=== PATIENT | male | born 1990 | race African-American/Black ===

== ENCOUNTER 2022-06-27 15:07 | Inpatient (IN) | payer OTHER ==
[~2022-06-27] VITALS: Ht 177.8 cm; Wt 97.6 kg
[2022-06-27 16:15] VITALS: BP 148/96
[2022-06-27] MEDS ORDERED: ONDANSETRON HCL 4 MG TABLET PO PRN (16:30)
[2022-06-27 20:16] VITALS: BP 156/68
[2022-06-27] MEDS: OxyCODONE HCL 5 MG IR TABLET PO PRN (20:16)
[2022-06-27] MEDS: ENOXAPARIN SODIUM 40 MG/0.4 ML PF SYRINGE SQ SCH (20:16)
[2022-06-27] MEDS: PREGABALIN 75 MG CAPSULE PO SCH (20:17)
[2022-06-27] MEDS: AMITRIPTYLINE HCL 25 MG TABLET PO SCH (20:19)
[2022-06-27] MEDS: SENNOSIDES 8.6 MG TABLET PO SCH (20:20)
[2022-06-27] MEDS: ETHYL ALCOHOL 62% ANTISEPTIC NASAL SANITIZER 0.6 ML AMPUL NASAL SCH (20:21)
[2022-06-27] MEDS ORDERED: LIDOCAINE 5% TRANSDERMAL PATCH TD SCH (20:30)
[2022-06-27] MEDS ORDERED: CELECOXIB 200 MG CAPSULE PO SCH (21:00)
[2022-06-27] MEDS ORDERED: -LIDODERM PATCH NOTE- MISC SCH (21:00)
[2022-06-27] MEDS: LIDOCAINE 5% TRANSDERMAL PATCH TD SCH ×2 (21:04→21:27)
[2022-06-28 08:00] VITALS: BP 153/88
[2022-06-28] MEDS: CELECOXIB 200 MG CAPSULE PO SCH ×2 (08:17→16:42)
[2022-06-28] MEDS: PREGABALIN 75 MG CAPSULE PO SCH ×3 (08:19→20:52)
[2022-06-28] MEDS: ETHYL ALCOHOL 62% ANTISEPTIC NASAL SANITIZER 0.6 ML AMPUL NASAL SCH ×2 (08:19→20:51)
[2022-06-28] MEDS: BuPROPion HCL XL 150 MG ER TABLET PO SCH (08:20)
[2022-06-28] MEDS: POLYETHYLENE GLYCOL 3350 17 GM PACKET PO SCH (08:20)
[2022-06-28] MEDS: ACETAMINOPHEN 325 MG TABLET PO PRN (08:20)
[2022-06-28] MEDS: ENOXAPARIN SODIUM 40 MG/0.4 ML PF SYRINGE SQ SCH ×2 (08:20→20:52)
[2022-06-28] MEDS: -LIDODERM PATCH NOTE- MISC SCH ×2 (08:37)
[2022-06-28 08:44] LABS: BASOPHILS % (AUTO) 0.7 % (0.0-2.0); EOSINOPHILS % (AUTO) 3.9 % (1.0-6.0); HEMATOCRIT 35.4 % (41-53); HEMOGLOBIN 11.3 g/dL (13.5-17.5); LYMPHOCYTES # (AUTO) 1.5 K/uL (1.0-4.8); LYMPHOCYTES % (AUTO) 30.7 % (22.0-44.0); MEAN CORPUSCULAR HEMOGLOBIN 27.5 pg (26.0-34.0); MEAN CORPUSCULAR HGB CONC 31.8 G/dL (31.0-37.0); MEAN CORPUSCULAR VOLUME 87 fL (80-100); MONOCYTES # (AUTO) 0.5 K/uL (0.1-1.0); MONOCYTES % (AUTO) 11.4 % (2.0-9.0); NEUTROPHILS # (AUTO) 2.5 K/uL (1.8-7.7); NEUTROPHILS % (AUTO) 53.3 % (40.0-70.0); PLATELET COUNT (AUTO) 429 K/uL (150-450); RED CELL DISTRIBUTION WIDTH 15.3 % (11.5-14.5)
[2022-06-28 09:00] LABS: ALANINE AMINOTRANSFERASE 38 U/L (12-78); ALBUMIN 3.5 g/dL (3.4-5.0); ALKALINE PHOSPHATASE 148 U/L (46-116); ANION GAP 11 mmol/L (8-16); ASPARTATE AMINOTRANSFERASE 21 U/L (15-37); BILIRUBIN,TOTAL 0.8 mg/dL (0.1-1.0); CALCIUM, TOTAL 9.5 mg/dL (8.8-10.5); CARBON DIOXIDE 25 mmol/L (22-29); CHLORIDE 98 mmol/L (98-107); CREATININE 0.81 mg/dL (0.60-1.30); GLOMERULAR FILTR. RATE CALC > 60 mL/min (>60); GLUCOSE,RANDOM 157 mg/dL (70-110); POTASSIUM 3.8 mmol/L (3.5-5.1); SODIUM SERUM 134 mmol/L (136-145); TOTAL PROTEIN, SERUM 7.9 g/dL (6.4-8.2)
[2022-06-28] MEDS ORDERED: -LIDODERM PATCH NOTE- MISC SCH (09:00)
[2022-06-28] MEDS ORDERED: LIDOCAINE 5% TRANSDERMAL PATCH TD SCH (09:00)
[2022-06-28] MEDS: OxyCODONE HCL 5 MG IR TABLET PO PRN (11:03)
[2022-06-28] MEDS: AMITRIPTYLINE HCL 25 MG TABLET PO SCH (20:51)
[2022-06-28] MEDS: MELATONIN 3 MG TABLET PO PRN (20:54)
[2022-06-28 21:00] VITALS: BP 135/84
[2022-06-28] MEDS: SENNOSIDES 8.6 MG TABLET PO SCH (21:00)
[2022-06-28] MEDS: LIDOCAINE 5% TRANSDERMAL PATCH TD SCH ×2 (21:03→21:05)
[2022-06-29] MEDS: OxyCODONE HCL 5 MG IR TABLET PO PRN (06:11)
[2022-06-29 08:40] VITALS: BP 152/88
[2022-06-29] MEDS: PREGABALIN 75 MG CAPSULE PO SCH ×3 (08:46→20:49)
[2022-06-29] MEDS: BuPROPion HCL XL 150 MG ER TABLET PO SCH (08:46)
[2022-06-29] MEDS: ENOXAPARIN SODIUM 40 MG/0.4 ML PF SYRINGE SQ SCH ×2 (08:46→20:50)
[2022-06-29] MEDS: CELECOXIB 200 MG CAPSULE PO SCH ×2 (08:47→17:06)
[2022-06-29] MEDS: -LIDODERM PATCH NOTE- MISC SCH ×2 (08:50→08:51)
[2022-06-29] MEDS: ETHYL ALCOHOL 62% ANTISEPTIC NASAL SANITIZER 0.6 ML AMPUL NASAL SCH ×2 (08:50→20:49)
[2022-06-29] MEDS: POLYETHYLENE GLYCOL 3350 17 GM PACKET PO SCH (08:51)
[2022-06-29] MEDS: AMITRIPTYLINE HCL 25 MG TABLET PO SCH (20:49)
[2022-06-29] MEDS: SENNOSIDES 8.6 MG TABLET PO SCH (20:50)
[2022-06-29] MEDS: LIDOCAINE 5% TRANSDERMAL PATCH TD SCH ×2 (20:51→20:53)
[2022-06-29] MEDS: MELATONIN 3 MG TABLET PO PRN (20:54)
[2022-06-29 21:00] VITALS: BP 138/79
[2022-06-30] MEDS: OxyCODONE HCL 5 MG IR TABLET PO PRN (05:23)
[2022-06-30] MEDS: CYCLOBENZAPRINE HCL 10 MG TABLET PO PRN ×2 (06:32→20:50)
[2022-06-30] MEDS: CELECOXIB 200 MG CAPSULE PO SCH ×2 (08:08→18:06)
[2022-06-30] MEDS: -LIDODERM PATCH NOTE- MISC SCH ×2 (08:08)
[2022-06-30] MEDS: BuPROPion HCL XL 150 MG ER TABLET PO SCH (08:09)
[2022-06-30] MEDS: ETHYL ALCOHOL 62% ANTISEPTIC NASAL SANITIZER 0.6 ML AMPUL NASAL SCH ×2 (08:09→20:48)
[2022-06-30] MEDS: PREGABALIN 75 MG CAPSULE PO SCH ×3 (08:09→20:47)
[2022-06-30] MEDS: POLYETHYLENE GLYCOL 3350 17 GM PACKET PO SCH (08:09)
[2022-06-30] MEDS: ENOXAPARIN SODIUM 40 MG/0.4 ML PF SYRINGE SQ SCH ×2 (08:09→20:48)
[2022-06-30 08:10] VITALS: BP 154/90
[2022-06-30] MEDS: ACETAMINOPHEN 325 MG TABLET PO PRN ×3 (08:16→20:49)
[2022-06-30 11:19] VITALS: BP 144/95
[2022-06-30 20:15] VITALS: BP 151/96
[2022-06-30] MEDS: AMITRIPTYLINE HCL 25 MG TABLET PO SCH (20:50)
[2022-06-30] MEDS: SENNOSIDES 8.6 MG TABLET PO SCH (20:51)
[2022-06-30] MEDS: MELATONIN 3 MG TABLET PO PRN (20:51)
[2022-06-30] MEDS: LIDOCAINE 5% TRANSDERMAL PATCH TD SCH ×2 (21:00)
[2022-07-01] MEDS: OxyCODONE HCL 5 MG IR TABLET PO PRN ×3 (05:39→20:36)
[2022-07-01] MEDS: ETHYL ALCOHOL 62% ANTISEPTIC NASAL SANITIZER 0.6 ML AMPUL NASAL SCH ×2 (08:13→20:39)
[2022-07-01] MEDS: ENOXAPARIN SODIUM 40 MG/0.4 ML PF SYRINGE SQ SCH ×2 (08:13→20:36)
[2022-07-01] MEDS: PREGABALIN 75 MG CAPSULE PO SCH ×3 (08:14→20:36)
[2022-07-01] MEDS: CELECOXIB 200 MG CAPSULE PO SCH ×2 (08:14→17:28)
[2022-07-01] MEDS: BuPROPion HCL XL 150 MG ER TABLET PO SCH (08:15)
[2022-07-01] MEDS: POLYETHYLENE GLYCOL 3350 17 GM PACKET PO SCH (08:22)
[2022-07-01 08:47] VITALS: BP 152/95
[2022-07-01] MEDS: -LIDODERM PATCH NOTE- MISC SCH ×2 (09:00)
[2022-07-01] MEDS: METOPROLOL SUCCINATE 25 MG ER TABLET PO SCH ×2 (16:30→18:07)
[2022-07-01] MEDS: CYCLOBENZAPRINE HCL 10 MG TABLET PO PRN (19:49)
[2022-07-01 19:50] VITALS: BP 133/88
[2022-07-01] MEDS: LIDOCAINE 5% TRANSDERMAL PATCH TD SCH ×2 (19:54→20:37)
[2022-07-01] MEDS: SENNOSIDES 8.6 MG TABLET PO SCH (20:36)
[2022-07-01] MEDS: AMITRIPTYLINE HCL 25 MG TABLET PO SCH (20:36)
[2022-07-02] MEDS: OxyCODONE HCL 5 MG IR TABLET PO PRN (04:16)
[2022-07-02] MEDS: CYCLOBENZAPRINE HCL 10 MG TABLET PO PRN ×2 (06:27→22:24)
[2022-07-02] MEDS: CELECOXIB 200 MG CAPSULE PO SCH ×2 (07:51→16:18)
[2022-07-02] MEDS: ENOXAPARIN SODIUM 40 MG/0.4 ML PF SYRINGE SQ SCH ×2 (07:51→20:56)
[2022-07-02] MEDS: ETHYL ALCOHOL 62% ANTISEPTIC NASAL SANITIZER 0.6 ML AMPUL NASAL SCH ×2 (07:51→20:55)
[2022-07-02] MEDS: BuPROPion HCL XL 150 MG ER TABLET PO SCH (07:52)
[2022-07-02] MEDS: POLYETHYLENE GLYCOL 3350 17 GM PACKET PO SCH (07:52)
[2022-07-02] MEDS: PREGABALIN 75 MG CAPSULE PO SCH ×3 (07:52→20:56)
[2022-07-02] MEDS: METOPROLOL SUCCINATE 25 MG ER TABLET PO SCH (07:52)
[2022-07-02 08:05] VITALS: BP 139/86
[2022-07-02] MEDS: -LIDODERM PATCH NOTE- MISC SCH ×2 (09:00)
[2022-07-02 20:20] VITALS: BP 138/94
[2022-07-02] MEDS: SENNOSIDES 8.6 MG TABLET PO SCH ×2 (20:56→21:00)
[2022-07-02] MEDS: LIDOCAINE 5% TRANSDERMAL PATCH TD SCH ×2 (20:56→21:00)
[2022-07-02] MEDS: AMITRIPTYLINE HCL 25 MG TABLET PO SCH (20:56)
[2022-07-02] MEDS: ZOLPIDEM TARTRATE 5 MG TABLET PO PRN (22:22)
[2022-07-03] MEDS: ETHYL ALCOHOL 62% ANTISEPTIC NASAL SANITIZER 0.6 ML AMPUL NASAL SCH ×2 (07:51→20:34)
[2022-07-03] MEDS: -LIDODERM PATCH NOTE- MISC SCH ×2 (07:51)
[2022-07-03] MEDS: CELECOXIB 200 MG CAPSULE PO SCH ×2 (07:51→16:51)
[2022-07-03] MEDS: METOPROLOL SUCCINATE 25 MG ER TABLET PO SCH (07:52)
[2022-07-03] MEDS: POLYETHYLENE GLYCOL 3350 17 GM PACKET PO SCH (07:52)
[2022-07-03] MEDS: BuPROPion HCL XL 150 MG ER TABLET PO SCH (07:52)
[2022-07-03] MEDS: PREGABALIN 75 MG CAPSULE PO SCH ×3 (07:52→20:36)
[2022-07-03] MEDS: ENOXAPARIN SODIUM 40 MG/0.4 ML PF SYRINGE SQ SCH ×2 (07:52→20:34)
[2022-07-03 08:00] VITALS: BP 142/84
[2022-07-03 20:20] VITALS: BP 136/78
[2022-07-03] MEDS: CYCLOBENZAPRINE HCL 10 MG TABLET PO PRN (20:34)
[2022-07-03] MEDS: LIDOCAINE 5% TRANSDERMAL PATCH TD SCH ×2 (20:35)
[2022-07-03] MEDS: ZOLPIDEM TARTRATE 5 MG TABLET PO PRN (20:36)
[2022-07-03] MEDS: AMITRIPTYLINE HCL 25 MG TABLET PO SCH (20:36)
[2022-07-03] MEDS: SENNOSIDES 8.6 MG TABLET PO SCH (20:37)
[2022-07-04] MEDS: ENOXAPARIN SODIUM 40 MG/0.4 ML PF SYRINGE SQ SCH ×2 (07:52→21:53)
[2022-07-04] MEDS: METOPROLOL SUCCINATE 25 MG ER TABLET PO SCH (07:53)
[2022-07-04] MEDS: PREGABALIN 75 MG CAPSULE PO SCH ×3 (07:53→21:55)
[2022-07-04] MEDS: CELECOXIB 200 MG CAPSULE PO SCH ×2 (07:54→18:16)
[2022-07-04] MEDS: POLYETHYLENE GLYCOL 3350 17 GM PACKET PO SCH (07:54)
[2022-07-04] MEDS: BuPROPion HCL XL 150 MG ER TABLET PO SCH (07:54)
[2022-07-04 07:56] LABS: CARBON DIOXIDE 27 mmol/L (22-29); CHLORIDE 99 mmol/L (98-107); POTASSIUM 4.6 mmol/L (3.5-5.1); SODIUM SERUM 138 mmol/L (136-145)
[2022-07-04 07:57] LABS: ANION GAP 12 mmol/L (8-16); CALCIUM, TOTAL 9.9 mg/dL (8.8-10.5); CREATININE 0.67 mg/dL (0.60-1.30); GLOMERULAR FILTR. RATE CALC > 60 mL/min (>60); GLUCOSE,RANDOM 117 mg/dL (70-110)
[2022-07-04 08:20] VITALS: BP 137/89
[2022-07-04] MEDS: -LIDODERM PATCH NOTE- MISC SCH ×2 (09:00)
[2022-07-04] MEDS: ETHYL ALCOHOL 62% ANTISEPTIC NASAL SANITIZER 0.6 ML AMPUL NASAL SCH ×2 (09:00→21:53)
[2022-07-04] MEDS: ACETAMINOPHEN 325 MG TABLET PO PRN (10:46)
[2022-07-04] MEDS: OxyCODONE HCL 5 MG IR TABLET PO PRN (15:00)
[2022-07-04 21:00] VITALS: BP 148/89
[2022-07-04] MEDS: LIDOCAINE 5% TRANSDERMAL PATCH TD SCH ×2 (21:00)
[2022-07-04] MEDS: SENNOSIDES 8.6 MG TABLET PO SCH (21:00)
[2022-07-04] MEDS: AMITRIPTYLINE HCL 25 MG TABLET PO SCH (21:55)
[2022-07-04] MEDS: ZOLPIDEM TARTRATE 5 MG TABLET PO PRN (23:00)
[2022-07-04] MEDS: CYCLOBENZAPRINE HCL 10 MG TABLET PO PRN (23:00)
[2022-07-05 08:17] LABS: EOSINOPHILS % (AUTO) 1.7 % (1.0-6.0); HEMATOCRIT 37.7 % (41-53); LYMPHOCYTES # (AUTO) 1.7 K/uL (1.0-4.8); LYMPHOCYTES % (AUTO) 33.2 % (22.0-44.0); MEAN CORPUSCULAR HEMOGLOBIN 27.4 pg (26.0-34.0); MEAN CORPUSCULAR HGB CONC 31.9 G/dL (31.0-37.0); MEAN CORPUSCULAR VOLUME 86 fL (80-100); MONOCYTES # (AUTO) 0.7 K/uL (0.1-1.0); MONOCYTES % (AUTO) 13.5 % (2.0-9.0); NEUTROPHILS # (AUTO) 2.6 K/uL (1.8-7.7); NEUTROPHILS % (AUTO) 50.6 % (40.0-70.0); PLATELET COUNT (AUTO) 363 K/uL (150-450); RED BLOOD CELL COUNT(AUTO) 4.39 MIL/uL (4.50-5.90); RED CELL DISTRIBUTION WIDTH 14.5 % (11.5-14.5)
[2022-07-05 08:30] VITALS: BP 132/80
[2022-07-05 08:43] LABS: THYROID STIMULATING HORMONE 2.76 uIU/mL (0.36-3.74)
[2022-07-05] MEDS: POLYETHYLENE GLYCOL 3350 17 GM PACKET PO SCH (09:00)
[2022-07-05] MEDS: -LIDODERM PATCH NOTE- MISC SCH ×2 (09:00)
[2022-07-05 09:08] LABS: HEMOGLOBIN A1C 4.7 % (3.8-5.6)
[2022-07-05] MEDS: ENOXAPARIN SODIUM 40 MG/0.4 ML PF SYRINGE SQ SCH ×2 (09:18→20:16)
[2022-07-05] MEDS: ETHYL ALCOHOL 62% ANTISEPTIC NASAL SANITIZER 0.6 ML AMPUL NASAL SCH ×2 (09:18→20:14)
[2022-07-05] MEDS: METOPROLOL SUCCINATE 25 MG ER TABLET PO SCH (09:19)
[2022-07-05] MEDS: BuPROPion HCL XL 150 MG ER TABLET PO SCH (09:19)
[2022-07-05] MEDS: CELECOXIB 200 MG CAPSULE PO SCH ×2 (09:19→17:17)
[2022-07-05] MEDS: ACETAMINOPHEN 325 MG TABLET PO PRN (09:29)
[2022-07-05] MEDS: PREGABALIN 50 MG CAPSULE PO SCH ×3 (10:05→20:15)
[2022-07-05] MEDS: OxyCODONE HCL 5 MG IR TABLET PO PRN (18:22)
[2022-07-05 19:53] VITALS: BP 139/80
[2022-07-05] MEDS: ZOLPIDEM TARTRATE 5 MG TABLET PO PRN (20:15)
[2022-07-05] MEDS: CYCLOBENZAPRINE HCL 10 MG TABLET PO PRN (20:15)
[2022-07-05] MEDS: SENNOSIDES 8.6 MG TABLET PO SCH (20:16)
[2022-07-05] MEDS: LIDOCAINE 5% TRANSDERMAL PATCH TD SCH ×2 (21:30→21:31)
[2022-07-05] MEDS: AMITRIPTYLINE HCL 25 MG TABLET PO SCH (21:31)
[2022-07-06] MEDS: OxyCODONE HCL 5 MG IR TABLET PO PRN ×2 (01:46→12:07)
[2022-07-06] MEDS: CELECOXIB 200 MG CAPSULE PO SCH ×2 (08:05→17:52)
[2022-07-06] MEDS: PREGABALIN 50 MG CAPSULE PO SCH ×3 (08:05→21:28)
[2022-07-06] MEDS: ENOXAPARIN SODIUM 40 MG/0.4 ML PF SYRINGE SQ SCH ×2 (08:06→21:29)
[2022-07-06] MEDS: METOPROLOL SUCCINATE 50 MG ER TABLET PO SCH (08:06)
[2022-07-06] MEDS: BuPROPion HCL XL 150 MG ER TABLET PO SCH (08:06)
[2022-07-06] MEDS: ETHYL ALCOHOL 62% ANTISEPTIC NASAL SANITIZER 0.6 ML AMPUL NASAL SCH ×2 (08:07→21:28)
[2022-07-06] MEDS: ACETAMINOPHEN 325 MG TABLET PO PRN ×2 (08:12→18:54)
[2022-07-06] MEDS: CYCLOBENZAPRINE HCL 10 MG TABLET PO PRN ×2 (08:17→21:28)
[2022-07-06 08:30] VITALS: BP 149/99
[2022-07-06] MEDS: -LIDODERM PATCH NOTE- MISC SCH ×2 (09:00)
[2022-07-06] MEDS: POLYETHYLENE GLYCOL 3350 17 GM PACKET PO SCH (09:00)
[2022-07-06 21:28] VITALS: BP 124/77
[2022-07-06] MEDS: ZOLPIDEM TARTRATE 5 MG TABLET PO PRN (21:28)
[2022-07-06] MEDS: SENNOSIDES 8.6 MG TABLET PO SCH (21:28)
[2022-07-06] MEDS: AMITRIPTYLINE HCL 25 MG TABLET PO SCH (21:28)
[2022-07-06] MEDS: LIDOCAINE 5% TRANSDERMAL PATCH TD SCH ×2 (21:30)
[2022-07-07] MEDS: ACETAMINOPHEN 325 MG TABLET PO PRN (07:40)
[2022-07-07] MEDS: BuPROPion HCL XL 150 MG ER TABLET PO SCH (07:40)
[2022-07-07] MEDS: CELECOXIB 200 MG CAPSULE PO SCH ×2 (07:40→16:18)
[2022-07-07] MEDS: ENOXAPARIN SODIUM 40 MG/0.4 ML PF SYRINGE SQ SCH ×2 (07:40→19:59)
[2022-07-07] MEDS: METOPROLOL SUCCINATE 50 MG ER TABLET PO SCH (07:40)
[2022-07-07] MEDS: PREGABALIN 50 MG CAPSULE PO SCH ×3 (07:40→20:00)
[2022-07-07] MEDS: ETHYL ALCOHOL 62% ANTISEPTIC NASAL SANITIZER 0.6 ML AMPUL NASAL SCH ×2 (07:47→19:59)
[2022-07-07] MEDS: -LIDODERM PATCH NOTE- MISC SCH ×2 (07:51)
[2022-07-07] MEDS: POLYETHYLENE GLYCOL 3350 17 GM PACKET PO SCH (07:52)
[2022-07-07 08:20] VITALS: BP 149/88
[2022-07-07] MEDS: CYCLOBENZAPRINE HCL 10 MG TABLET PO PRN (19:59)
[2022-07-07 20:00] VITALS: BP 137/78
[2022-07-07] MEDS: SENNOSIDES 8.6 MG TABLET PO SCH (20:00)
[2022-07-07] MEDS: AMITRIPTYLINE HCL 50 MG TABLET PO SCH (20:00)
[2022-07-07] MEDS: ZOLPIDEM TARTRATE 5 MG TABLET PO PRN (20:00)
[2022-07-07] MEDS: LIDOCAINE 5% TRANSDERMAL PATCH TD SCH ×2 (20:01)
[2022-07-08] MEDS: OxyCODONE HCL 5 MG IR TABLET PO PRN ×2 (00:59→23:38)
[2022-07-08] MEDS: -LIDODERM PATCH NOTE- MISC SCH ×2 (07:59)
[2022-07-08] MEDS: POLYETHYLENE GLYCOL 3350 17 GM PACKET PO SCH (07:59)
[2022-07-08] MEDS: ETHYL ALCOHOL 62% ANTISEPTIC NASAL SANITIZER 0.6 ML AMPUL NASAL SCH ×2 (07:59→21:26)
[2022-07-08] MEDS: CELECOXIB 200 MG CAPSULE PO SCH ×2 (07:59→16:40)
[2022-07-08] MEDS: PREGABALIN 50 MG CAPSULE PO SCH ×3 (07:59→21:26)
[2022-07-08 08:00] VITALS: BP 147/90
[2022-07-08] MEDS: ACETAMINOPHEN 325 MG TABLET PO PRN (08:00)
[2022-07-08] MEDS: BuPROPion HCL XL 150 MG ER TABLET PO SCH (08:00)
[2022-07-08] MEDS: ENOXAPARIN SODIUM 40 MG/0.4 ML PF SYRINGE SQ SCH ×2 (08:00→21:27)
[2022-07-08] MEDS: METOPROLOL SUCCINATE 50 MG ER TABLET PO SCH (08:00)
[2022-07-08 21:00] VITALS: BP 141/76
[2022-07-08] MEDS: AMITRIPTYLINE HCL 50 MG TABLET PO SCH (21:26)
[2022-07-08] MEDS: SENNOSIDES 8.6 MG TABLET PO SCH (21:27)
[2022-07-08] MEDS: LIDOCAINE 5% TRANSDERMAL PATCH TD SCH ×2 (21:28→21:30)
[2022-07-08] MEDS: CYCLOBENZAPRINE HCL 10 MG TABLET PO PRN (21:38)
[2022-07-08] MEDS: ZOLPIDEM TARTRATE 5 MG TABLET PO PRN (22:22)
[2022-07-09 08:05] VITALS: BP 154/95
[2022-07-09] MEDS: PREGABALIN 50 MG CAPSULE PO SCH ×3 (08:19→21:42)
[2022-07-09] MEDS: -LIDODERM PATCH NOTE- MISC SCH ×2 (08:19)
[2022-07-09] MEDS: ETHYL ALCOHOL 62% ANTISEPTIC NASAL SANITIZER 0.6 ML AMPUL NASAL SCH ×2 (08:19→21:41)
[2022-07-09] MEDS: METOPROLOL SUCCINATE 50 MG ER TABLET PO SCH (08:19)
[2022-07-09] MEDS: POLYETHYLENE GLYCOL 3350 17 GM PACKET PO SCH (08:19)
[2022-07-09] MEDS: CELECOXIB 200 MG CAPSULE PO SCH ×2 (08:19→16:48)
[2022-07-09] MEDS: ACETAMINOPHEN 325 MG TABLET PO PRN (08:20)
[2022-07-09] MEDS: ENOXAPARIN SODIUM 40 MG/0.4 ML PF SYRINGE SQ SCH ×2 (08:20→21:42)
[2022-07-09] MEDS: BuPROPion HCL XL 150 MG ER TABLET PO SCH (08:20)
[2022-07-09] MEDS: LIDOCAINE 5% TRANSDERMAL PATCH TD SCH ×2 (21:00)
[2022-07-09 21:41] VITALS: BP 137/82
[2022-07-09] MEDS: SENNOSIDES 8.6 MG TABLET PO SCH (21:41)
[2022-07-09] MEDS: AMITRIPTYLINE HCL 50 MG TABLET PO SCH (21:41)
[2022-07-09] MEDS: CYCLOBENZAPRINE HCL 10 MG TABLET PO PRN (21:46)
[2022-07-09] MEDS: ZOLPIDEM TARTRATE 5 MG TABLET PO PRN (21:46)
[2022-07-10] MEDS: ENOXAPARIN SODIUM 40 MG/0.4 ML PF SYRINGE SQ SCH ×2 (08:02→22:04)
[2022-07-10] MEDS: METOPROLOL SUCCINATE 50 MG ER TABLET PO SCH (08:03)
[2022-07-10] MEDS: ACETAMINOPHEN 325 MG TABLET PO PRN ×3 (08:03→22:04)
[2022-07-10] MEDS: BuPROPion HCL XL 150 MG ER TABLET PO SCH (08:03)
[2022-07-10] MEDS: CELECOXIB 200 MG CAPSULE PO SCH ×2 (08:03→16:23)
[2022-07-10] MEDS: POLYETHYLENE GLYCOL 3350 17 GM PACKET PO SCH (08:04)
[2022-07-10] MEDS: PREGABALIN 50 MG CAPSULE PO SCH ×3 (08:04→22:05)
[2022-07-10] MEDS: ETHYL ALCOHOL 62% ANTISEPTIC NASAL SANITIZER 0.6 ML AMPUL NASAL SCH ×2 (08:04→22:05)
[2022-07-10 08:05] VITALS: BP 156/124
[2022-07-10] MEDS: LIDOCAINE 5% TRANSDERMAL PATCH TD SCH ×3 (08:05→22:08)
[2022-07-10] MEDS: -LIDODERM PATCH NOTE- MISC SCH ×2 (08:07)
[2022-07-10 08:15] VITALS: BP 161/98
[2022-07-10 09:30] VITALS: BP 134/86
[2022-07-10] MEDS ORDERED: METO-391 PO (11:11)
[2022-07-10] MEDS ORDERED: ENOX40SY14 SQ (11:11)
[2022-07-10] MEDS ORDERED: SENN-376 PO (11:11)
[2022-07-10] MEDS ORDERED: AMIT50TA3 PO (11:11)
[2022-07-10] MEDS ORDERED: BUPR-49 PO (11:11)
[2022-07-10] MEDS ORDERED: ZOLP-280 PO (11:11)
[2022-07-10] MEDS ORDERED: POLY17PO PO (11:11)
[2022-07-10] MEDS ORDERED: ACET325T51 PO (11:11)
[2022-07-10] MEDS ORDERED: PREG50 PO (11:11)
[2022-07-10] MEDS ORDERED: OXYC5 PO (11:11)
[2022-07-10] MEDS ORDERED: LIDO700A30 TD (11:11)
[2022-07-10] MEDS ORDERED: CELE200 PO (11:11)
[2022-07-10] MEDS ORDERED: CYCL-448 PO (11:11)
[2022-07-10] MEDS: SENNOSIDES 8.6 MG TABLET PO SCH (21:00)
[2022-07-10 22:04] VITALS: BP 146/85
[2022-07-10] MEDS: CYCLOBENZAPRINE HCL 10 MG TABLET PO PRN (22:05)
[2022-07-10] MEDS: AMITRIPTYLINE HCL 50 MG TABLET PO SCH (22:05)
[2022-07-10] MEDS: ZOLPIDEM TARTRATE 5 MG TABLET PO PRN (22:59)
[2022-07-11] MEDS: OxyCODONE HCL 5 MG IR TABLET PO PRN (07:42)
[2022-07-11] MEDS: ENOXAPARIN SODIUM 40 MG/0.4 ML PF SYRINGE SQ SCH (07:43)
[2022-07-11] MEDS: BuPROPion HCL XL 150 MG ER TABLET PO SCH (07:43)
[2022-07-11] MEDS: CELECOXIB 200 MG CAPSULE PO SCH (07:43)
[2022-07-11] MEDS: METOPROLOL SUCCINATE 50 MG ER TABLET PO SCH (07:44)
[2022-07-11] MEDS: PREGABALIN 50 MG CAPSULE PO SCH (07:44)
[2022-07-11] MEDS: -LIDODERM PATCH NOTE- MISC SCH ×2 (07:45)
[2022-07-11] MEDS: POLYETHYLENE GLYCOL 3350 17 GM PACKET PO SCH (07:48)
[2022-07-11 09:47] VITALS: BP 158/103
[2022-07-11] MEDS: ETHYL ALCOHOL 62% ANTISEPTIC NASAL SANITIZER 0.6 ML AMPUL NASAL SCH (09:47)
== END 2022-07-11 12:25 | disposition home or self-care (01) | DRG 183 ==
LOC: 2WR 16:00
PROVIDERS: ADMIT Physical Medicine & Rehabilitation; ATTEND Physical Medicine & Rehabilitation
DX: S22.42XA Multiple fractures of ribs, left side, initial encounter for closed fracture (principal); S32.401A Unspecified fracture of right acetabulum, initial encounter for closed fracture; S32.402A Unspecified fracture of left acetabulum, initial encounter for closed fracture; S52.91XA Unspecified fracture of right forearm, initial encounter for closed fracture; S52.202A Unspecified fracture of shaft of left ulna, initial encounter for closed fracture; S42.302A Unspecified fracture of shaft of humerus, left arm, initial encounter for closed fracture; S52.92XA Unspecified fracture of left forearm, initial encounter for closed fracture; E87.1 Hypo-osmolality and hyponatremia; F33.2 Major depressive disorder, recurrent severe without psychotic features; G47.00 Insomnia, unspecified; I10 Essential (primary) hypertension; K59.00 Constipation, unspecified; D64.9 Anemia, unspecified; R26.9 Unspecified abnormalities of gait and mobility; R41.89 Other symptoms and signs involving cognitive functions and awareness; F07.81 Postconcussional syndrome; V89.2XXA Person injured in unspecified motor-vehicle accident, traffic, initial encounter; Y93.89 Activity, other specified; Z79.01 Long term (current) use of anticoagulants; Y92.89 Other specified places as the place of occurrence of the external cause; Y99.8 Other external cause status
CPT/HCPCS: 80048; 80053; 83036; 84443; 85025; 87081; 87481; 92507; 97110; 97112; 97116; 97140; 97150; 97162; 97167; 97530; 97535; 99285; 99366; J1650; Q0162